=== PATIENT | male | born 1975 | race African-American/Black ===

== ENCOUNTER 2021-11-22 00:10 | Emergency (ER) | payer OTHER ==
[~2021-11-22] VITALS: Ht 182.9 cm; Wt 90.5 kg
[2021-11-22 00:37] VITALS: BP 130/90
--- NOTE | 2021-11-22 00:41 | NUR ---
pt sent to lobby.
== END 2021-11-22 02:42 | disposition left against medical advice (07) ==
LOC: MED 00:10
DX: M25.512 Pain in left shoulder (principal); M79.644 Pain in right finger(s); Z53.21 Procedure and treatment not carried out due to patient leaving prior to being seen by health care provider; Z88.0 Allergy status to penicillin

== ENCOUNTER 2021-12-09 12:33 | Emergency (ER) | payer OTHER ==
[~2021-12-09] VITALS: Ht 182.9 cm; Wt 91.6 kg
[2021-12-09 12:46] VITALS: BP 127/81
--- NOTE | 2021-12-09 12:49 | NUR ---
PT TO WAIT IN LOBBY.
[2021-12-09] MEDS ORDERED: KETOROLAC 60 MG/2 ML VIAL IM ONE (13:20)
--- NOTE | 2021-12-09 13:42 | NUR ---
PT TAKEN TO XR VIA W/C.
[2021-12-09] MEDS ORDERED: NAPR-54 PO (14:15)
--- NOTE | 2021-12-09 14:54 | NUR ---
PT LEFT WITHOUT D/C PAPERWORK. ERMD AWARE.
== END 2021-12-09 14:54 | disposition home or self-care (01) ==
LOC: MED 12:33
DX: S60.221A Contusion of right hand, initial encounter (principal); Z98.890 Other specified postprocedural states; Z88.0 Allergy status to penicillin; V00.131A Fall from skateboard, initial encounter; Y93.51 Activity, roller skating (inline) and skateboarding; Y92.331 Roller skating rink as the place of occurrence of the external cause; Y99.8 Other external cause status
CPT/HCPCS: 73110; 73130; 96372; 99284; J1885